=== PATIENT | male | born 1935 | race Caucasian/White ===

== ENCOUNTER 2018-04-08 23:44 | Observation (INO) | payer MEDICARE, OTHER ==
[2018-04-08] MEDS ORDERED: Sodium Chloride 0.9% 10 ML Syringe FLUSH PRN (23:48)
[2018-04-08] MEDS ORDERED: Metoclopramide 10 MG/2 ML SDV IVPUSH ONE (23:49)
[2018-04-08] MEDS ORDERED: Ondansetron 4 MG/2 ML SDV IVPUSH ONE (23:49)
[2018-04-08] MEDS ORDERED: Sodium Chloride 0.9% 1,000 ML IV ONE (23:49)
--- NOTE | 2018-04-09 00:12 | EDM.PDOC ---
ED HPI GENERAL MEDICAL PROBLEM - General Chief Complaint: Abdominal Pain Stated Complaint: ABDOMINAL PAIN Time Seen by Provider: 04/08/18 23:46 Source of Information: Reports: Patient, Family, RN, RN Notes Reviewed History Limitations: Reports: No Limitations - History of Present Illness INITIAL COMMENTS - FREE TEXT/NARRATIVE: Patient presents the emergency room at [facility] complaining of abdominal pain for the past 2 days. The patient states that he has not had a bowel movement in the last 2 days. The patient states that he has a bowel movement every day in the morning. The patient states that he has also been vomiting. The patient states he has not been passing gas. The patient states that he has been belching more than usual. The patient denies any recent medication changes. The patient does not take a daily narcotic. The patient has tried milk of magnesia [id number] without any success. The patient states that his abdomen feels very bloated and distended. The patient denies any diarrhea. The patient denies any blood in bowel movements. Otherwise no other concerns. Onset Date: 04/07/18 Duration: Waxing/Waning Location: Reports: Abdomen Quality: Reports: Dull, Pressure Severity: Mild Improves with: Reports: None Worsens with: Reports: Eating, Movement Context: Denies: Exercise, Sick Contact, Trauma Associated Symptoms: Reports: Nausea/Vomiting Lower Abdomen Pain Score (Numeric/FACES): 6 - Related Data Allergies Allergy/AdvReac Type Severity Reaction Status Date / Time Antihistamines - Alkylamine Allergy Decreased Verified 04/08/18 23:47 Urine Output Penicillins Allergy Shaking Verified 04/08/18 23:47 Home Meds: Home Meds Cyclobenzaprine [Flexeril] 10 mg PO DAILY PRN 11/22/14 [History] Donepezil HCl [Aricept] 10 mg PO BEDTIME 11/22/14 [History] Gluc HCl/Csa/Jose Daniel Hy/Hyalur Ac [Glucosamine Chondroitin] 1 cap PO DAILY [History] Lisinopril 5 mg PO QPM 11/22/14 [History] Multivitamin [Multi-Vitamin Daily] 1 tab PO DAILY 11/22/14 [History] [place]-3/DHA/Epa/Fish Oil [[place]-3 Fish Oil 1,000 MG Sfgl] 1 cap PO DAILY [History] Omeprazole 1 cap PO DAILY 11/22/14 [History] Simvastatin [Zocor] 0.5 tab PO DAILY 11/22/14 [History] Zolpidem [Ambien] 5 mg PO BEDTIME PRN 11/22/14 [History] Aspirin 1 tab PO DAILY 10/26/15 [History] Past Medical History HEENT History: Reports: Cataract, Other (See Below) Other HEENT History: blepharitis Cardiovascular History: Reports: CAD, Heart Murmur, High Cholesterol, Hypertension Respiratory History: Reports: Sleep Apnea Gastrointestinal History: Reports: GERD Genitourinary History: Reports: BPH, Other (See Below) Other Genitourinary History: nocturia Neurological History: Reports: Other (See Below) Other Neuro History: poor short term memory Psychiatric History: Reports: Anxiety - Past Surgical History Cardiovascular Surgical History: Reports: Coronary Artery Bypass Male Surgical History: Reports: TURP-Transurethral Resection of Prostate Musculoskeletal Surgical History: Reports: Knee Replacement Social & Family History - Tobacco Use Smoking Status *Q: Former Smoker Used Tobacco, but Quit: Yes Month/Year Tobacco Last Used: 1994 ED ROS GENERAL - Review of Systems Review Of Systems: See Below Constitutional: Denies: Fever, Chills, Weakness Respiratory: Denies: Shortness of Breath, Cough Cardiovascular: Denies: Chest Pain, Palpitations GI/Abdominal: Reports: Abdominal Pain, Constipation, Nausea, Vomiting. Denies: Diarrhea Skin: Reports: No Symptoms Neurological: Reports: No Symptoms. Denies: Dizziness, Headache ED EXAM, GI/ABD - Physical Exam Exam: See Below Exam Limited By: No Limitations General Appearance: Alert, No Apparent Distress Respiratory/Chest: No Respiratory Distress, Lungs Clear, Normal Breath Sounds Cardiovascular: Normal Peripheral Pulses, Regular Rate, Rhythm GI/Abdominal Exam: Distended, Tender (generalized lower), Abnormal Bowel Sounds (Hyperactive RLQ, LLQ; Hypoactive LUQ). No: Rebound Neurological: Alert, Oriented Skin Exam: Warm, Dry, Intact, Normal Color Course - Vital Signs Last Recorded V/S: Last Vital Signs Temp 36.3 C 04/09/18 00:50 Pulse 94 04/09/18 00:50 Resp 18 04/09/18 00:50 BP 128/79 04/09/18 00:50 Pulse Ox 94 L 04/09/18 00:50 - Orders/Labs/Meds Orders: Active Orders 24 hr Category Date Time Status Abdomen Pelvis w Cont [CT] Stat Exams 04/08/18 23:50 Taken Sodium Chloride 0.9% [Saline Flush] Med 04/08/18 23:48 Active 10 ml FLUSH ASDIRECTED PRN Peripheral IV Insertion Adult [OM.PC] Routine Oth 04/08/18 23:48 Ordered Medication Orders Sodium Chloride (Saline Flush) 10 ml FLUSH ASDIRECTED PRN PRN Reason: Keep Vein Open Labs: Laboratory Tests 04/09/18 04/09/18 Range/Units 00:03 00:03 WBC 10.2 H (4.0-10.0) x10^3/uL RBC 5.69 (4.5-6.0) x10^6/uL Hgb 17.8 (14.0-18.0) g/dL Hct 49.9 (40.0-52.0) % MCV 87.7 (78.0-93.0) fL MCH 31.3 (26.0-32.0) pg MCHC 35.7 (32.0-36.0) g/dL RDW Coeff of Erwin 13.5 (10.0-15.0) % Plt Count 172 (130-400) x10^3/uL Add Manual Diff Yes Neutrophils % (Manual) 77 (50-80) % Band Neutrophils % 10 H (0-6) % Lymphocytes % (Manual) 4 L (25-50) % Monocytes % (Manual) 8 (2-11) % Basophils % (Manual) 1 (0-1) % Toxic Granulation 1+ slight H Platelet Estimate Adequate Giant Platelets Rare H Sodium 139 (136-145) mmol/L Potassium 4.0 (3.5-5.1) mmol/L Chloride 103 (98-107) mmol/L Carbon Dioxide 27 (21-32) mmol/L Anion Gap 13.0 (10-20) mmol/L BUN 22 H (7-18) mg/dL Creatinine 1.3 (0.70-1.30) mg/dL Est Cr Clr Drug Dosing TNP Estimated GFR (MDRD) 53 Glucose 155 H (74-106) mg/dL Calcium 9.5 (8.5-10.1) mg/dL Corrected Calcium 9.74 (8.5-10.1) mg/dL Total Bilirubin 0.7 (0.2-1.0) mg/dL AST 29 (15-37) U/L ALT 38 (16-63) U/L Alkaline Phosphatase 72 (46-116) U/L Total Protein 7.2 (6.4-8.2) g/dL Albumin 3.7 (3.4-5.0) g/dL Globulin 3.5 Albumin/Globulin Ratio 1.06 Amylase 34 (25-115) U/L Lipase 135 (73-393) U/L Meds: Medications Generic Name Dose Route Start Last Admin Trade Name Freq PRN Reason Stop Dose Admin Sodium Chloride 10 ml 04/08/18 23:48 Saline Flush FLUSH ASDIRECTED PRN Keep Vein Open Discontinued Medications Generic Name Dose Route Start Last Admin Trade Name Freq PRN Reason Stop Dose Admin Sodium Chloride 1,000 mls @ 999 mls/hr 04/08/18 23:49 04/09/18 00:00 Normal Saline IV 04/09/18 00:49 999 mls/hr ONETIME ONE Administration Iopamidol 100 ml 04/09/18 00:30 04/09/18 00:40 Isovue-300 (61%) IVPUSH 04/09/18 00:31 100 ml ONETIME ONE Administration Metoclopramide HCl 10 mg 04/08/18 23:49 04/09/18 00:07 Reglan IVPUSH 04/08/18 23:50 10 mg ONETIME ONE Administration Ondansetron HCl 4 mg 04/08/18 23:49 04/09/18 00:07 Zofran IVPUSH 04/08/18 23:50 4 mg ONETIME ONE Administration - Radiology Interpretation Free Text/Narrative:: CT Abd/Pelvis: Partial small bowel obstruction; transition zone right lower quadrant; no evidence of bowel perforation or pneumstosis intestinalis See scanned report in EMR CT Results Date: 04/09/18 CT Results Time: 01:17 Departure - Departure Time of Disposition: 01:17 Disposition: Refer to Observation Condition: Good Clinical Impression: Partial small bowel obstruction, Dyspepsia due to dysmotility Nausea and vomiting Qualifiers: Vomiting type: unspecified Vomiting Intractability: non-intractable Qualified Code(s): R11.2 - Nausea with vomiting, unspecified - Discharge Information *PRESCRIPTION DRUG MONITORING PROGRAM REVIEWED*: Not Applicable *COPY OF PRESCRIPTION DRUG MONITORING REPORT IN PATIENT ROBERTO: Not Applicable - Problem List Review Problem List Initiated/Reviewed/Updated: Yes - My Orders Last 24 Hours: My Active Orders 04/08/18 23:48 Sodium Chloride 0.9% [Saline Flush] 10 ml FLUSH ASDIRECTED PRN Peripheral IV Insertion Adult [OM.PC] Routine 04/08/18 23:50 Abdomen Pelvis w Cont [CT] Stat - Assessment/Plan Last 24 Hours: My Active Orders 04/08/18 23:48 Sodium Chloride 0.9% [Saline Flush] 10 ml FLUSH ASDIRECTED PRN Peripheral IV Insertion Adult [OM.PC] Routine 04/08/18 23:50 Abdomen Pelvis w Cont [CT] Stat Assessment:: Partial small bowel obstruction Transition Zone in the right lower quad Nausea and Vomiting Dyspepsia Plan: Indicia system checked - recommend observation unit admission with possible transition to acute as symptoms warrant. Patient will be admitted to obs under my service. Patient agrees with POC and wishes to proceed.
[2018-04-09 00:29] LABS: CHLORIDE,CL 103 mmol/L (98-107); SODIUM,NA 139 mmol/L (136-145)
[2018-04-09] MEDS ORDERED: Iopamidol 612 MG/ML 100 ML Bottle IVPUSH ONE (00:30)
[2018-04-09] MEDS ORDERED: Ondansetron 4 MG/2 ML SDV IV PRN (01:32)
[2018-04-09] MEDS ORDERED: GI Cocktail Oral Solution 30 ML PO ONE ×2 (01:32→08:50)
[2018-04-09] MEDS ORDERED: Morphine 2 MG/ML Syringe IVPUSH PRN (01:32)
--- NOTE | 2018-04-09 01:54 | PCM.HP ---
H&P History of Present Illness - General Date of Service: 04/09/18 Admit Problem/Dx: Admission Diagnosis/Problem Admission Diagnosis/Problem Small bowel obstruction Nausea and Vomiting Dyspepsia Source of Information: Patient, Family, RN, RN Notes Reviewed History Limitations: Reports: No Limitations - History of Present Illness Initial Comments - Free Text/Narative: Patient presents the emergency room at [facility] earlier this evening complaining of abdominal pain for the past 2 days. The patient states that he has not had a bowel movement in the last 2 days. The patient states that he has a bowel movement every day in the morning. The patient states that he has also been vomiting. The patient states he has not been passing gas. The patient states that he has been belching more than usual. The patient denies any recent medication changes. The patient does not take a daily narcotic. The patient has tried milk of magnesia [id number] without any success. The patient states that his abdomen feels very bloated and distended. The patient denies any diarrhea. The patient denies any blood in bowel movements. Otherwise no other concerns. Location: Reports: Abdomen (lower) Quality: Reports: Dull, Pressure Severity: Mild Improves with: Reports: Rest Worsens with: Reports: Eating, Movement Associated Symptoms: Reports: Nausea/Vomiting Lower Abdomen Pain Score (Numeric/FACES): 6 - Related Data Allergies/Adverse Reactions: Allergies Allergy/AdvReac Type Severity Reaction Status Date / Time Antihistamines - Alkylamine Allergy Decreased Verified 04/08/18 23:47 Urine Output Penicillins Allergy Shaking Verified 04/08/18 23:47 Home Medications: Home Meds Cyclobenzaprine [Flexeril] 10 mg PO DAILY PRN 11/22/14 [History] Donepezil HCl [Aricept] 10 mg PO BEDTIME 11/22/14 [History] Gluc HCl/Csa/Jose Daniel Hy/Hyalur Ac [Glucosamine Chondroitin] 1 cap PO DAILY [History] Lisinopril 5 mg PO QPM 11/22/14 [History] Multivitamin [Multi-Vitamin Daily] 1 tab PO DAILY 11/22/14 [History] [place]-3/DHA/Epa/Fish Oil [[place]-3 Fish Oil 1,000 MG Sfgl] 1 cap PO DAILY [History] Omeprazole 1 cap PO DAILY 11/22/14 [History] Simvastatin [Zocor] 0.5 tab PO DAILY 11/22/14 [History] Zolpidem [Ambien] 5 mg PO BEDTIME PRN 11/22/14 [History] Aspirin 1 tab PO DAILY 10/26/15 [History] Past Medical History HEENT History: Reports: Cataract, Other (See Below) Other HEENT History: blepharitis Cardiovascular History: Reports: CAD, Heart Murmur, High Cholesterol, Hypertension Respiratory History: Reports: Sleep Apnea Gastrointestinal History: Reports: GERD Genitourinary History: Reports: BPH, Other (See Below) Other Genitourinary History: nocturia Neurological History: Reports: Other (See Below) Other Neuro History: poor short term memory Psychiatric History: Reports: Anxiety - Past Surgical History Cardiovascular Surgical History: Reports: Coronary Artery Bypass Male Surgical History: Reports: TURP-Transurethral Resection of Prostate Musculoskeletal Surgical History: Reports: Knee Replacement Social & Family History - Family History Family Medical History: Noncontributory - Tobacco Use Smoking Status *Q: Former Smoker Years of Tobacco use: 30 Used Tobacco, but Quit: Yes Month/Year Tobacco Last Used: 1994 - Caffeine Use Caffeine Use: Reports: Coffee - Recreational Drug Use Recreational Drug Use: No H&P Review of Systems - Review of Systems: Review Of Systems: See Below General: Denies: Fever, Chills, Weakness Pulmonary: Denies: Shortness of Breath, Cough Cardiovascular: Denies: Chest Pain, Palpitations Gastrointestinal: Reports: Abdominal Pain, Constipation, Nausea, Vomiting. Denies: Diarrhea Skin: Reports: No Symptoms Psychiatric: Reports: No Symptoms Exam - Exam Exam: See Below - Vital Signs Vital Signs: Last Vital Signs Temp 36.4 C 04/09/18 01:20 Pulse 101 H 04/09/18 01:20 Resp 16 04/09/18 01:20 BP 116/76 04/09/18 01:20 Pulse Ox 93 L 04/09/18 01:20 Weight: 87.09 kg - Exam Quality Assessment: DVT Prophylaxis General: Alert, Oriented, Cooperative Lungs: Clear to Auscultation, Normal Respiratory Effort Cardiovascular: Regular Rate, Regular Rhythm GI/Abdominal Exam: Distended, Rigid, Tender, Abnormal Bowel Sounds (Hyperactive RLQ) Peripheral Pulses: 2+: Radial (L), Radial (R) Skin: Warm, Dry, Intact Neuro Extensive - Mental Status: Alert, Oriented x3 - Patient Data Lab Results Last 24 hrs: Laboratory Results - last 24 hr 04/09/18 04/09/18 Range/Units 00:03 00:03 WBC 10.2 H (4.0-10.0) x10^3/uL RBC 5.69 (4.5-6.0) x10^6/uL Hgb 17.8 (14.0-18.0) g/dL Hct 49.9 (40.0-52.0) % MCV 87.7 (78.0-93.0) fL MCH 31.3 (26.0-32.0) pg MCHC 35.7 (32.0-36.0) g/dL RDW Coeff of [place]win 13.5 (10.0-15.0) % Plt Count 172 (130-400) x10^3/uL Add Manual Diff Yes Neutrophils % (Manual) 77 (50-80) % Band Neutrophils % 10 H (0-6) % Lymphocytes % (Manual) 4 L (25-50) % Monocytes % (Manual) 8 (2-11) % Basophils % (Manual) 1 (0-1) % Toxic Granulation 1+ slight H Platelet Estimate Adequate Giant Platelets Rare H Sodium 139 (136-145) mmol/L Potassium 4.0 (3.5-5.1) mmol/L Chloride 103 (98-107) mmol/L Carbon Dioxide 27 (21-32) mmol/L Anion Gap 13.0 (10-20) mmol/L BUN 22 H (7-18) mg/dL Creatinine 1.3 (0.70-1.30) mg/dL Est Cr Clr Drug Dosing TNP Estimated GFR (MDRD) 53 Glucose 155 H (74-106) mg/dL Calcium 9.5 (8.5-10.1) mg/dL Corrected Calcium 9.74 (8.5-10.1) mg/dL Total Bilirubin 0.7 (0.2-1.0) mg/dL AST 29 (15-37) U/L ALT 38 (16-63) U/L Alkaline Phosphatase 72 (46-116) U/L Total Protein 7.2 (6.4-8.2) g/dL Albumin 3.7 (3.4-5.0) g/dL Globulin 3.5 Albumin/Globulin Ratio 1.06 Amylase 34 (25-115) U/L Lipase 135 (73-393) U/L Result Diagrams: 04/09/18 00:03 04/09/18 00:03 *Q Meaningful Use (ADM) - VTE *Q VTE Criteria *Q: Patient is not at risk for falls with this admission - Problem List (1) Partial small bowel obstruction SNOMED Code(s): 354365755 ICD Code: K56.600 - PARTIAL INTESTINAL OBSTRUCTION, UNSPECIFIED TO CAUSE Status: Acute Priority: High Current Visit: Yes Onset Date: ~04/08/18 (2) Nausea and vomiting SNOMED Code(s): 48754339 ICD Code: R11.2 - NAUSEA WITH VOMITING, UNSPECIFIED Status: Acute Priority: Medium Current Visit: Yes Onset Date: ~04/08/18 Qualifiers: Vomiting type: unspecified Vomiting Intractability: non-intractable Qualified Code(s): R11.2 - Nausea with vomiting, unspecified (3) Dyspepsia due to dysmotility SNOMED Code(s): 0761243 ICD Code: K30 - FUNCTIONAL DYSPEPSIA Status: Acute Priority: Medium Current Visit: Yes Onset Date: ~04/08/18 (4) Coronary artery disease SNOMED Code(s): 17112625 ICD Code: I25.10 - ATHSCL HEART DISEASE OF [place] CORONARY ARTERY W/O ANG PCTRS Status: Chronic Priority: Low Current Visit: No Qualifiers: Coronary Disease-Associated Artery/Lesion type: [place] artery [place] vs. transplanted heart: [place] heart Associated angina: without angina Qualified Code(s): I25.10 - Atherosclerotic heart disease of [place] coronary artery without angina pectoris (5) Essential hypertension SNOMED Code(s): 07798162 ICD Code: I10 - ESSENTIAL (PRIMARY) HYPERTENSION Status: Chronic Priority : Low Current Visit: No (6) GERD (gastroesophageal reflux disease) SNOMED Code(s): 496942444 ICD Code: K21.9 - GASTRO-ESOPHAGEAL REFLUX DISEASE WITHOUT ESOPHAGITIS Status: Chronic Priority: Low Current Visit: No Qualifiers: Esophagitis presence: with esophagitis Qualified Code(s): K21.0 - Gastro- esophageal reflux disease with esophagitis (7) STEVE (obstructive sleep apnea) SNOMED Code(s): 44380030 ICD Code: G47.33 - OBSTRUCTIVE SLEEP APNEA (ADULT) (PEDIATRIC) Status: Chronic Priority: Low Current Visit: No Problem List Initiated/Reviewed/Updated: Yes Orders Last 24hrs: Active Orders 24 hr Category Date Time Status Patient Status [ADT] Routine ADT 04/09/18 01:33 Active Bedrest Bathroom Privileges [RC] ASDIRECTED Care 04/09/18 01:32 Active Height and Weight [RC] UPON Care 04/09/18 01:32 Active Intake and Output [RC] 06,18 Care 04/09/18 01:34 Active May Shower [RC] ASDIRECTED Care 04/09/18 01:32 Active Oxygen Therapy [RC] PRN Care 04/09/18 01:33 Active VTE/DVT Education [RC] .PRN Care 04/09/18 01:33 Active Vital Signs [RC] 06,10,14,18,22,02 Care 04/09/18 01:33 Active Nothing per Oral Now Diet [DIET] Diet 04/09/18 Breakfast Active Abdomen Pelvis w Cont [CT] Stat Exams 04/08/18 23:50 Taken BASIC METABOLIC PANEL,BMP [CHEM] Routine Lab 04/09/18 05:11 Ordered CBC WITH AUTO DIFF [HEME] Routine Lab 04/09/18 05:11 Ordered UA W/MICROSCOPIC [URIN] Stat Lab 04/09/18 01:32 Ordered Aspirin [Aspirin] Med 04/09/18 08:00 Ordered 1 tab PO DAILY Donepezil HCl [Aricept] Med 04/09/18 20:00 Ordered 10 mg PO BEDTIME Lisinopril [Lisinopril] Med 04/09/18 20:00 Ordered 5 mg PO QPM Metoclopramide [Reglan] Med 04/09/18 01:45 Ordered 10 mg IVPUSH Q8H Morphine Med 04/09/18 01:32 Ordered 2 mg IVPUSH Q2H PRN Ondansetron [Zofran] Med 04/09/18 01:32 Ordered 4 mg IV Q6H PRN Pantoprazole [ProTONIX IV] Med 04/09/18 01:45 Ordered 40 mg IVPUSH Q12H Simvastatin [Zocor] Med 04/09/18 20:00 Ordered 0.5 tab PO DAILY Sodium Chloride 0.9% [Normal Saline] 1,000 ml Med 04/09/18 01:45 Ordered IV ASDIRECTED Sodium Chloride 0.9% [Saline Flush] Med 04/08/18 23:48 Active 10 ml FLUSH ASDIRECTED PRN Zolpidem Med 04/09/18 01:37 Ordered 5 mg PO BEDTIME PRN NG [Nasogastric Orogastric Tube Insertion] [OM.PC] Oth 04/09/18 01:42 Ordered Routine Peripheral IV Insertion Adult [OM.PC] Routine Oth 04/08/18 23:48 Ordered Resuscitation Status Routine Resus Stat 04/09/18 01:32 Ordered Medication Orders Sodium Chloride (Normal Saline) 1,000 mls @ 125 mls/hr IV ASDIRECTED NATO Metoclopramide HCl (Reglan) 10 mg IVPUSH Q8H NATO Morphine Sulfate (Morphine) 2 mg IVPUSH Q2H PRN PRN Reason: Pain (severe 7-10) Non-Formulary Medication (Aspirin [Aspirin]) 1 tab PO DAILY NATO Non-Formulary Medication (Donepezil Hcl [Aricept]) 10 mg PO BEDTIME NATO Non-Formulary Medication (Lisinopril [Lisinopril]) 5 mg PO QPM [place] Non-Formulary Medication (Simvastatin [Zocor]) 0.5 tab PO DAILY [place] Non-Formulary Medication (Zolpidem) 5 mg PO BEDTIME PRN PRN Reason: Sleep Ondansetron HCl (Zofran) 4 mg IV Q6H PRN PRN Reason: Nausea/Vomiting Pantoprazole Sodium (Protonix Iv) 40 mg IVPUSH Q12H NATO Sodium Chloride (Saline Flush) 10 ml FLUSH ASDIRECTED PRN PRN Reason: Keep Vein Open Assessment/Plan Comment:: 82-year-old male patient with a past medical history of coronary artery disease , hypertension, gastroesophageal reflux disease, STEVE is admitted to the observation unit [facility] with a diagnosis of partial small bowel obstruction, nausea vomiting, and dyspepsia. NG will be placed for decompression. IVF for adequate hydration. Patient will be started on Protonix IV as well as scheduled Reglan. We will recheck a abdominal x-ray in the morning. I will also recheck blood work in the a.m. I do not anticipate this patient will be admitted for greater than 48 hours, however there is a chance if his symptoms do not improve. The patient does wish to be transferred to a high-level care if the need arises. The patient wishes to be a full code.
[2018-04-09] MEDS ORDERED: Zolpidem 5 MG Tab PO PRN (01:58)
[2018-04-09] MEDS ORDERED: Metoclopramide 10 MG/2 ML SDV IVPUSH SCH (02:00)
[2018-04-09] MEDS: Sodium Chloride 0.9% 1,000 ML IV SCH ×3 (02:20→18:26)
[2018-04-09] MEDS: Pantoprazole 40 MG Vial IVPUSH SCH ×2 (02:23→14:02)
[2018-04-09 07:47] LABS: ANION GAP 13.2 mmol/L (10-20)
[2018-04-09] MEDS: Metoclopramide 10 MG/2 ML SDV IVPUSH SCH ×3 (09:56→17:20)
[2018-04-09] MEDS: Aspirin 325 MG Tab.EC PO SCH (10:00)
[2018-04-09] MEDS ORDERED: Sodium Chloride 0.9% 1,000 ML IV ONE (12:46)
--- NOTE | 2018-04-09 13:03 | PCM.PN ---
- General Info Date of Service: 04/09/18 Admission Dx/Problem (Free Text): Admission Diagnosis/Problem Admission Diagnosis/Problem Small bowel obstruction Nausea and Vomiting Dyspepsia Subjective Update: Patient states that he does feel some dyspepsia this morning. The patient states that he can feel a burning sensation in the back of his throat radiating down to the epigastric area. The patient denies any chest pain or shortness of breath. Patient currently does not feel nauseated. The patient did have a large bowel movement this morning, in which he does feel better. The patient will remain nothing by mouth. The patient has not had any diarrhea. The patient denies any abdominal pain. Functional Status: Reports: Pain Controlled, Ambulating, Urinating Pain Score: 0 - Review of Systems General: Denies: Fever, Weakness, Chills Pulmonary: Denies: Shortness of Breath, Cough Cardiovascular: Denies: Chest Pain, Palpitations Gastrointestinal: Reports: Other (dyspepsia/heartburn symptoms). Denies: Abdominal Pain, Nausea, Vomiting Skin: Reports: No Symptoms Neurological: Reports: No Symptoms - Patient Data Vitals - Most Recent: Last Vital Signs Temp 37.0 C 04/09/18 09:54 Pulse 100 04/09/18 09:54 Resp 20 04/09/18 09:54 BP 137/82 04/09/18 09:54 Pulse Ox 99 04/09/18 09:54 Weight - Most Recent: 87.09 kg I&O - Last 24 Hours: Intake & Output 04/08/18 04/09/18 04/09/18 22:59 06:59 14:59 Intake Total 1568 Balance 1568 Lab Results Last 24 Hours: Laboratory Results - last 24 hr 04/09/18 04/09/18 04/09/18 Range/Units 00:03 00:03 07:02 WBC 10.2 H 6.0 (4.0-10.0) x10^3/uL RBC 5.69 5.42 (4.5-6.0) x10^6/uL Hgb 17.8 16.9 (14.0-18.0) g/dL Hct 49.9 48.4 (40.0-52.0) % MCV 87.7 89.3 (78.0-93.0) fL MCH 31.3 31.2 (26.0-32.0) pg MCHC 35.7 34.9 (32.0-36.0) g/dL RDW Coeff of [place] 13.5 13.6 (10.0-15.0) % Plt Count 172 141 (130-400) x10^3/uL Neut % (Auto) 82.9 H (50.0-80.0) % Lymph % (Auto) 6.7 L (25.0-50.0) % [place] % (Auto) 9.9 (2.0-11.0) % Eos % (Auto) 0.3 (0.0-4.0) % Baso % (Auto) 0.2 (0.2-1.2) % Add Manual Diff Yes Neutrophils % (Manual) 77 (50-80) % Band Neutrophils % 10 H (0-6) % Lymphocytes % (Manual) 4 L (25-50) % Monocytes % (Manual) 8 (2-11) % Basophils % (Manual) 1 (0-1) % Toxic Granulation 1+ slight H Platelet Estimate Adequate Giant Platelets Rare H Sodium 139 (136-145) mmol/L Potassium 4.0 (3.5-5.1) mmol/L Chloride 103 (98-107) mmol/L Carbon Dioxide 27 (21-32) mmol/L Anion Gap 13.0 (10-20) mmol/L BUN 22 H (7-18) mg/dL Creatinine 1.3 (0.70-1.30) mg/dL Est Cr Clr Drug Dosing TNP Estimated GFR (MDRD) 53 Glucose 155 H (74-106) mg/dL Calcium 9.5 (8.5-10.1) mg/dL Corrected Calcium 9.74 (8.5-10.1) mg/dL Total Bilirubin 0.7 (0.2-1.0) mg/dL AST 29 (15-37) U/L ALT 38 (16-63) U/L Alkaline Phosphatase 72 (46-116) U/L Total Protein 7.2 (6.4-8.2) g/dL Albumin 3.7 (3.4-5.0) g/dL Globulin 3.5 Albumin/Globulin Ratio 1.06 Amylase 34 (25-115) U/L Lipase 135 (73-393) U/L 04/09/18 Range/Units 07:02 WBC (4.0-10.0) x10^3/uL RBC (4.5-6.0) x10^6/uL Hgb (14.0-18.0) g/dL Hct (40.0-52.0) % MCV (78.0-93.0) fL MCH (26.0-32.0) pg MCHC (32.0-36.0) g/dL RDW Coeff of [place] (10.0-15.0) % Plt Count (130-400) x10^3/uL Neut % (Auto) (50.0-80.0) % Lymph % (Auto) (25.0-50.0) % [place] % (Auto) (2.0-11.0) % Eos % (Auto) (0.0-4.0) % Baso % (Auto) (0.2-1.2) % Add Manual Diff Neutrophils % (Manual) (50-80) % Band Neutrophils % (0-6) % Lymphocytes % (Manual) (25-50) % Monocytes % (Manual) (2-11) % Basophils % (Manual) (0-1) % Toxic Granulation Platelet Estimate Giant Platelets Sodium 141 (136-145) mmol/L Potassium 4.2 (3.5-5.1) mmol/L Chloride 106 (98-107) mmol/L Carbon Dioxide 26 (21-32) mmol/L Anion Gap 13.2 (10-20) mmol/L BUN 24 H (7-18) mg/dL Creatinine 1.2 (0.70-1.30) mg/dL Est Cr Clr Drug Dosing 46.71 Estimated GFR (MDRD) 58 Glucose 145 H (74-106) mg/dL Calcium 8.8 (8.5-10.1) mg/dL Corrected Calcium (8.5-10.1) mg/dL Total Bilirubin (0.2-1.0) mg/dL AST (15-37) U/L ALT (16-63) U/L Alkaline Phosphatase (46-116) U/L Total Protein (6.4-8.2) g/dL Albumin (3.4-5.0) g/dL Globulin Albumin/Globulin Ratio Amylase (25-115) U/L Lipase (73-393) U/L Med Orders - Current: Current Medications Aspirin (Ecotrin) 325 mg PO DAILY [facility] Last Admin: 04/09/18 10:00 Dose: Not Given Donepezil HCl (Aricept) 10 mg PO BEDTIME [facility] Sodium Chloride (Normal Saline) 1,000 mls @ 125 mls/hr IV ASDIRECTED [facility] Last Admin: 04/09/18 10:27 Dose: 125 mls/hr Sodium Chloride (Normal Saline) 1,000 mls @ 999 mls/hr IV ONETIME ONE Stop: 04/09/18 13:46 Lisinopril (Prinivil) 5 mg PO QPM [facility] Metoclopramide HCl (Reglan) 10 mg IVPUSH Q8H [facility] Last Admin: 04/09/18 10:28 Dose: 10 mg Morphine Sulfate (Morphine) 2 mg IVPUSH Q2H PRN PRN Reason: Pain (severe 7-10) Ondansetron HCl (Zofran) 4 mg IV Q6H PRN PRN Reason: Nausea/Vomiting Pantoprazole Sodium (Protonix Iv) 40 mg IVPUSH Q12H [facility] Last Admin: 04/09/18 02:23 Dose: 40 mg Simvastatin (Zocor) 20 mg PO DAILY [facility] Sodium Chloride (Saline Flush) 10 ml FLUSH ASDIRECTED PRN PRN Reason: Keep Vein Open Zolpidem Tartrate (Ambien) 5 mg PO BEDTIME PRN PRN Reason: SLEEP Discontinued Medications Al Hydroxide/Mg Hydroxide (Gi Cocktail) 30 ml PO ONETIME ONE Stop: 04/09/18 01:33 Last Admin: 04/09/18 02:14 Dose: 30 ml Al Hydroxide/Mg Hydroxide (Gi Cocktail) 30 ml PO ONETIME ONE Stop: 04/09/18 08:51 Last Admin: 04/09/18 09:56 Dose: Not Given Sodium Chloride (Normal Saline) 1,000 mls @ 999 mls/hr IV ONETIME ONE Stop: 04/09/18 00:49 Last Admin: 04/09/18 00:00 Dose: 999 mls/hr Iopamidol (Isovue-300 (61%)) 100 ml IVPUSH ONETIME ONE Stop: 04/09/18 00:31 Last Admin: 04/09/18 00:40 Dose: 100 ml Metoclopramide HCl (Reglan) 10 mg IVPUSH ONETIME ONE Stop: 04/08/18 23:50 Last Admin: 04/09/18 00:07 Dose: 10 mg Metoclopramide HCl (Reglan) 10 mg IVPUSH Q8H [facility] Last Admin: 04/09/18 05:20 Dose: Not Given Ondansetron HCl (Zofran) 4 mg IVPUSH ONETIME ONE Stop: 04/08/18 23:50 Last Admin: 04/09/18 00:07 Dose: 4 mg - Exam General: Alert, Oriented, Cooperative, No Acute Distress Lungs: Clear to Auscultation, Normal Respiratory Effort Cardiovascular: Regular Rate, Regular Rhythm GI/Abdominal Exam: Tender, Abnormal Bowel Sounds (Hyperactive) Peripheral Pulses: 2+: Radial (L), Radial (R) Skin: Warm, Dry, Intact Neurological: No New Focal Deficit - Problem List & Annotations (1) Partial small bowel obstruction SNOMED Code(s): 327673217 Code(s): K56.600 - PARTIAL INTESTINAL OBSTRUCTION, UNSPECIFIED TO CAUSE Status: Acute Priority: High Current Visit: Yes Onset Date: ~04/08/18 (2) Nausea and vomiting SNOMED Code(s): 06268567 Code(s): R11.2 - NAUSEA WITH VOMITING, UNSPECIFIED Status: Acute Priority : Medium Current Visit: Yes Onset Date: ~04/08/18 Qualifiers: Vomiting type: unspecified Vomiting Intractability: non-intractable Qualified Code(s): R11.2 - Nausea with vomiting, unspecified (3) Dyspepsia due to dysmotility SNOMED Code(s): 3874894 Code(s): K30 - FUNCTIONAL DYSPEPSIA Status: Acute Priority: Medium Current Visit: Yes Onset Date: ~04/08/18 (4) Coronary artery disease SNOMED Code(s): 64116498 Code(s): I25.10 - ATHSCL HEART DISEASE OF [place] CORONARY ARTERY W/O ANG PCTRS Status: Chronic Priority: Low Current Visit: No Qualifiers: Coronary Disease-Associated Artery/Lesion type: [place] artery [place] vs. transplanted heart: [place] heart Associated angina: without angina Qualified Code(s): I25.10 - Atherosclerotic heart disease of [place] coronary artery without angina pectoris (5) Essential hypertension SNOMED Code(s): 25901723 Code(s): I10 - ESSENTIAL (PRIMARY) HYPERTENSION Status: Chronic Priority : Low Current Visit: No (6) GERD (gastroesophageal reflux disease) SNOMED Code(s): 190551922 Code(s): K21.9 - GASTRO-ESOPHAGEAL REFLUX DISEASE WITHOUT ESOPHAGITIS Status: Chronic Priority: Low Current Visit: No Qualifiers: Esophagitis presence: with esophagitis Qualified Code(s): K21.0 - Gastro- esophageal reflux disease with esophagitis (7) STEVE (obstructive sleep apnea) SNOMED Code(s): 46698359 Code(s): G47.33 - OBSTRUCTIVE SLEEP APNEA (ADULT) (PEDIATRIC) Status: Chronic Priority: Low Current Visit: No - Problem List Review Problem List Initiated/Reviewed/Updated: Yes - My Orders Last 24 Hours: My Active Orders 04/08/18 23:48 Sodium Chloride 0.9% [Saline Flush] 10 ml FLUSH ASDIRECTED PRN Peripheral IV Insertion Adult [OM.PC] Routine 04/08/18 23:50 Abdomen Pelvis w Cont [CT] Stat 04/09/18 01:32 Bedrest Bathroom Privileges [RC] ASDIRECTED May Shower [RC] ASDIRECTED UA W/MICROSCOPIC [URIN] Stat Morphine 2 mg IVPUSH Q2H PRN Ondansetron [Zofran] 4 mg IV Q6H PRN Resuscitation Status Routine 04/09/18 01:33 Patient Status [ADT] Routine Oxygen Therapy [RC] PRN VTE/DVT Education [RC] .PRN Vital Signs [RC] 06,10,14,18,22,02 04/09/18 01:34 Intake and Output [RC] ,18 04/09/18 01:42 NG [Nasogastric Orogastric Tube Insertion] [OM.PC] Routine 04/09/18 01:45 Sodium Chloride 0.9% [Normal Saline] 1,000 ml IV ASDIRECTED 04/09/18 01:58 Zolpidem [Ambien] 5 mg PO BEDTIME PRN 04/09/18 02:00 Pantoprazole [ProTONIX IV] 40 mg IVPUSH Q12H 04/09/18 08:00 Abdomen 2V AP Flat Upright [CR] Routine Aspirin [Ecotrin] 325 mg PO DAILY Metoclopramide [Reglan] 10 mg IVPUSH Q8H 04/09/18 12:46 Sodium Chloride 0.9% [Normal Saline] 1,000 ml IV ONETIME 04/09/18 12:49 Bladder Scan [RC] ONETIME 04/09/18 20:00 Donepezil [Aricept] 10 mg PO BEDTIME Lisinopril [Prinivil] 5 mg PO QPM Simvastatin [Zocor] 20 mg PO DAILY 04/09/18 Breakfast Nothing per Oral Now Diet [DIET] - Assessment Assessment:: SBO Nausea Dyspepsia 2/2 dysmotility - Plan Plan:: Hospital day #2 for an 82-year-old male patient I was admitted yesterday for a small bowel obstruction, nausea and vomiting, dyspepsia secondary to dysmotility. The patient states that he feels better today. The patient did have a large bowel movement this morning which really seemed to help his symptoms, however he is feeling some esophagitis symptoms. We will continue the patient on his Reglan as ordered. The patient may have when necessary GI cocktails as needed for his dyspepsia. We'll also continue the patient on Protonix IV. I am going to give the patient 1 more liter of normal saline bolus to help with his small bowel obstruction. We will then continue his IV fluids at 125 mL per hour. I would encourage the patient to ambulate as much as possible today. We will continue with the NG to gravity probably throat the rest of the day today. I do anticipate the patient being able to be discharged tomorrow, however he needs to be taking by mouth prior to this. We will advance his diet as tolerated today and see how he does.
[2018-04-09] MEDS ORDERED: Donepezil 10 MG Tab PO SCH (20:00)
[2018-04-09] MEDS ORDERED: Lisinopril 5 MG Tab PO SCH (20:00)
[2018-04-09] MEDS: Simvastatin 20 MG Tab PO SCH (21:27)
[2018-04-10] MEDS: Pantoprazole 40 MG Vial IVPUSH SCH (02:14)
[2018-04-10] MEDS: Metoclopramide 10 MG/2 ML SDV IVPUSH SCH ×2 (02:14→07:49)
[2018-04-10 05:38] VITALS: BP 104/59
[2018-04-10] MEDS: Simvastatin 20 MG Tab PO SCH (07:49)
[2018-04-10] MEDS: Aspirin 325 MG Tab.EC PO SCH (07:49)
[2018-04-10 08:13] LABS: CHLORIDE,CL 109 mmol/L (98-107); SODIUM,NA 140 mmol/L (136-145)
[2018-04-10 08:19] LABS: ANION GAP 8.7 mmol/L (10-20)
== END 2018-04-10 11:00 | disposition home or self-care (01) ==
LOC: VM.ED 23:44 → VM.MS 04-09 00:54
PROVIDERS: ADMIT Nurse Practitioner Family; ATTEND Nurse Practitioner Family
DX: K56.600 Partial intestinal obstruction, unspecified as to cause (principal); R11.2 Nausea with vomiting, unspecified; R10.13 Epigastric pain; I25.10 Atherosclerotic heart disease of native coronary artery without angina pectoris; I10 Essential (primary) hypertension; E78.00 Pure hypercholesterolemia, unspecified; G47.33 Obstructive sleep apnea (adult) (pediatric); K21.9 Gastro-esophageal reflux disease without esophagitis; F41.9 Anxiety disorder, unspecified; N40.0 Benign prostatic hyperplasia without lower urinary tract symptoms; Z79.899 Other long term (current) drug therapy; Z88.0 Allergy status to penicillin; Z88.8 Allergy status to other drugs, medicaments and biological substances; Z87.891 Personal history of nicotine dependence
CPT/HCPCS: 36415; 74019; 74177; 80048; 80053; 81001; 82150; 83690; 85025; 96361; 96374; 96375; 96376; 99285; A9270; C9113; G0378; J2405; J2765; J7030; J7050; Q9967

== ENCOUNTER 2020-01-29 15:18 | Emergency (ER) | payer MEDICARE, OTHER ==
--- NOTE | 2020-01-29 15:33 | EDM.PDOC ---
ED HPI GENERAL MEDICAL PROBLEM - General Chief Complaint: Lower Extremity Injury/Pain Stated Complaint: TWISTED ANKLE Time Seen by Provider: 01/29/20 15:20 Source of Information: Reports: Patient History Limitations: Reports: No Limitations - History of Present Illness INITIAL COMMENTS - FREE TEXT/NARRATIVE: Patient states was using a Rototiller and got his pants legs caught up in it which twisted his left ankle causing extreme pain on the inside of the ankle about 20 minutes ago. He denies any bleeding or any other trauma states he is able to walk on it but it hurts a lot about a 6 out of 10 throbbing Has no other medical issues no other complaints at this time Onset: Sudden Duration: Minutes: Quality: Reports: Throbbing Severity: Moderate Improves with: Reports: Rest Worsens with: Reports: Movement Left Ankle Pain Score (Numeric/FACES): 5 - Related Data Allergies Allergy/AdvReac Type Severity Reaction Status Date / Time Antihistamines - Alkylamine Allergy Decreased Verified 01/29/20 15:41 Urine Output Penicillins Allergy Shaking Verified 01/29/20 15:41 Home Meds: Home Meds Cyclobenzaprine [Flexeril] 10 mg PO DAILY PRN 11/22/14 [History] Donepezil HCl [Aricept] 10 mg PO BEDTIME 11/22/14 [History] Glucosam/Chond/Collagen/Hyalur [Glucosamine Chondroitin] 1 cap PO DAILY [History] Lisinopril 5 mg PO QPM 11/22/14 [History] Multivitamin [Multi-Vitamin Daily] 1 tab PO DAILY 11/22/14 [History] Bath-3/DHA/Epa/Fish Oil [Bath-3 Fish Oil 1,000 MG Sfgl] 1 cap PO DAILY [History] Omeprazole 1 cap PO DAILY 11/22/14 [History] Simvastatin [Zocor] 0.5 tab PO DAILY 11/22/14 [History] Zolpidem [Ambien] 5 mg PO BEDTIME PRN 11/22/14 [History] Aspirin 1 tab PO DAILY 10/26/15 [History] Past Medical History HEENT History: Reports: Cataract, Other (See Below) Other HEENT History: blepharitis Cardiovascular History: Reports: CAD, Heart Murmur, High Cholesterol, Hypertension Respiratory History: Reports: Sleep Apnea Gastrointestinal History: Reports: GERD Genitourinary History: Reports: BPH, Other (See Below) Other Genitourinary History: nocturia Neurological History: Reports: Other (See Below) Other Neuro History: poor short term memory Psychiatric History: Reports: Anxiety - Past Surgical History Cardiovascular Surgical History: Reports: Coronary Artery Bypass Male Surgical History: Reports: TURP-Transurethral Resection of Prostate Musculoskeletal Surgical History: Reports: Knee Replacement Social & Family History - Family History Family Medical History: Noncontributory - Caffeine Use Caffeine Use: Reports: Coffee Review of Systems - Review of Systems Review Of Systems: See Below Constitutional: Reports: No Symptoms Eyes: Reports: No Symptoms Musculoskeletal: Reports: Joint Pain. Denies: Foot Pain, Joint Swelling Skin: Reports: No Symptoms Neurological: Reports: No Symptoms Psychiatric: Reports: No Symptoms ED EXAM, GENERAL - Physical Exam Exam: See Below Exam Limited By: No Limitations General Appearance: Alert, WD/WN, No Apparent Distress Extremities: Normal Inspection, Normal Range of Motion, No Pedal Edema, Normal Capillary Refill, Other (Exam to the left ankle patient is neurovascular intact with a strong dorsalis pedis posterior tibialis he is equal soft touch sensation full range of motion with the foot he has negative tenderness to palpation over the navicular or lateral malleolus with tenderness to palpation over the medial malleolus he has no tenderness palpation over the proximal tib- fib area there is no tenderness palpation over the fifth metatarsal). No: Non- Tender Neurological: Alert, Oriented, CN II-XII Intact, Normal Cognition, Normal Gait, No Motor/Sensory Deficits Psychiatric: Normal Affect, Normal Mood Skin Exam: Warm, Dry, Intact, Normal Color, No Rash Course - Vital Signs Text/Narrative:: 3 view plain film ordered Noted to left distal fib fracture questionable malleolus Per radiology report displaced distal left fibular fracture Patient has no signs or symptoms of a masanouse FX spoke with Dr. DANIELA Bui at [facility] he said to splint the patient having follow-up outpatient in 1 week phone # pt refused crutches states ok with walking boot and f/u with ortho does not want any meds at this time Last Recorded V/S: Last Vital Signs Temp 36.3 C 01/29/20 15:20 Pulse 82 01/29/20 15:20 Resp 16 01/29/20 15:20 BP 123/59 L 01/29/20 15:20 Pulse Ox 91 L 01/29/20 15:20 Departure - Departure Time of Disposition: 16:20 Disposition: Home, Self-Care 01 Condition: Good Clinical Impression: Fibula fracture - Discharge Information *PRESCRIPTION DRUG MONITORING PROGRAM REVIEWED*: No *COPY OF PRESCRIPTION DRUG MONITORING REPORT IN PATIENT ROBERTO: No Instructions: Tibial and Fibular Fractures Referrals: Alvin Amado PA-C [Primary Care Provider] - Forms: ED Department Discharge Additional Instructions: You may take [id number] Tylenol Motrin as directed on the bottle for the next 24 to 48 hours Apply ice to the area as much as possible for the next 24 hours usually 1 hour on 1 hour off return to the emergency room if any numbness tingling discoloration or cold sensation to the foot occurs Follow-up with your primary care provider in the next 24 to 48 hours return to the emergency room if anything changes or gets worse Follow-up with Dr. DANIELA Bui at [facility] in 1 week call this phone number Thursday for an appointment phone # Sepsis Event Note - Focused Exam Vital Signs: Vital Signs Temp Pulse Resp BP Pulse Ox 01/29/20 15:20 36.3 C 82 16 123/59 L 91 L Date Exam was Performed: 01/29/20 Time Exam was Performed: 22:50 - Problem List & Annotations (1) Fibula fracture SNOMED Code(s): 31957319 Code(s): S82.409A - UNSP FRACTURE OF SHAFT OF UNSP FIBULA, INIT FOR CLOS FX Status: Acute
[2020-01-29 15:52] VITALS: BP 123/59; PULSE 82
--- NOTE | 2020-01-29 16:12 | CR ---
[id number] RAD/RAD Ankle Left 3V Min EXAM: RAD Ankle Left 3V Min CLINICAL DATA: TRAUMA COMPARISON: NO PREVIOUS SIMILAR EXAM IS AVAILABLE. FINDINGS: There is a distal left fibular diametaphyseal fracture with lateral displacement of distal fracture fragment This results in widening of the mortise Consider imaging of the knee. This is considered a Thakkar C fracture There may also be a minimal posterior malleolar fracture IMPRESSION: DISPLACED DISTAL LEFT FIBULAR FRACTURE Murray Rivera MD 01/29/20 [id number] Thank you for allowing us to participate in the care of your patient.
== END 2020-01-29 16:33 | disposition home or self-care (01) ==
LOC: VM.ED 15:18
DX: S82.402A Unspecified fracture of shaft of left fibula, initial encounter for closed fracture (principal); Z88.0 Allergy status to penicillin; I25.10 Atherosclerotic heart disease of native coronary artery without angina pectoris; E78.00 Pure hypercholesterolemia, unspecified; I10 Essential (primary) hypertension; K21.9 Gastro-esophageal reflux disease without esophagitis; Z79.899 Other long term (current) drug therapy; X50.1XXA Overexertion from prolonged static or awkward postures, initial encounter
CPT/HCPCS: 73610-LT; 99283-25

== ENCOUNTER 2022-03-14 19:09 | Emergency (ER) | payer MEDICARE, OTHER ==
[2022-03-14] MEDS ORDERED: Sodium Chloride 0.9% 10 ML Syringe FLUSH PRN (19:18)
[2022-03-14] MEDS ORDERED: Ondansetron 4 MG/2 ML SDV IVPUSH ONE (19:21)
[2022-03-14] MEDS ORDERED: Lactated Ringers 1,000 ML IV ONE ×2 (19:21→21:24)
[2022-03-14] MEDS ORDERED: Morphine 4 MG/ML Syringe IVPUSH ONE (19:22)
[2022-03-14 19:49] VITALS: BP 99/59; PULSE 60
[2022-03-14 20:17] LABS: PTT,PARTIAL THROMBOPLSTIN TIME 20.1 SEC (20.5-30.9)
[2022-03-14 20:29] LABS: CHLORIDE,CL 102 mmol/L (98-107); SODIUM,NA 138 mmol/L (136-145)
[2022-03-14 20:30] LABS: ANION GAP 15.3 mmol/L (5-15); ESTIMATED GFR 34 mL/min (>=60)
[2022-03-14] MEDS ORDERED: Metoclopramide 10 MG/2 ML SDV IVPUSH ONE (20:41)
[2022-03-14] MEDS ORDERED: Iopamidol 612 MG/ML 100 ML Bottle IVPUSH ONE (20:44)
== END 2022-03-14 23:10 | disposition short-term general hospital (02) ==
LOC: VM.ED 19:09
DX: I21.4 Non-ST elevation (NSTEMI) myocardial infarction (principal); K56.699 Other intestinal obstruction unspecified as to partial versus complete obstruction; I10 Essential (primary) hypertension; E78.00 Pure hypercholesterolemia, unspecified; Z79.82 Long term (current) use of aspirin; Z79.899 Other long term (current) drug therapy; Z88.0 Allergy status to penicillin; Z88.8 Allergy status to other drugs, medicaments and biological substances
CPT/HCPCS: 36415; 43752; 74177; 80053; 82150; 83605; 83690; 83735; 84100; 84484; 85025; 85610; 85730; 86140; 93005; 93010; 96361; 96374; 96375; 99284; 99285-25; J2270; J2405; J2765; J7120; Q9967